=== PATIENT | male | born 1975 | race Caucasian/White ===

== ENCOUNTER 2023-08-26 01:16 | Day surgery (SDC) | payer BC, SELFPAY ==
[2023-08-16 08:39] VITALS: BMI 30.7
--- NOTE | 2023-08-24 11:59 | SUR.PREOP ---
Patient called regarding upcoming procedure. Message left on pt's vm regarding appointment times.
--- NOTE | 2023-08-26 13:18 | PM.HPGS ---
History of Present Illness History of Present Illness Consent: Risks, benefits, and alternatives have been discussed and questions answered. Patient agrees to proceed with procedure. Chief complaint: neoplasm screening Narrative: Sd Chino Jr. is a 48 year old male referred for colon cancer screening. Review of Systems Review of Systems: All systems reviewed & are unremarkable except as noted in HPI and below [facility] Social History Social History Smoking status: Never smoker Alcohol intake: current Drinks per week: 3 Substance use type: does not use Living arrangements: alone Meds Home Medications and Allergies Home Medications Medication Instructions Recorded Confirmed Type gabapentin 600 mg tablet 600 mg PO HS 08/16/23 08/26/23 History glimepiride 4 mg tablet 4 mg PO BID 08/16/23 08/26/23 History hydroxyzine pamoate 50 mg capsule 50 mg PO HS 08/16/23 08/26/23 History metformin 1,000 mg tablet 1,000 mg PO BID 08/16/23 08/26/23 History Allergies Allergy/AdvReac Type Severity Reaction Status Date / Time No Known Allergies Allergy Verified 08/26/23 12:59 Exam Const: General: alert Orientation/consciousness: patient oriented x3 Resp: Auscultation: clear to auscultation bilaterally Cardio: Rhythm: regular rhythm GI: GI Palp: Yes Soft to palpation and No Tenderness to palpation present (GI) Neuro: General: patient oriented x3 Assessment and Plan Assessment and plan (1) Colon cancer screening: Code(s): Z12.11 - Encounter for screening for malignant neoplasm of colon Status: Acute Assessment and Plan: Colonoscopy with possible biopsy or polypectomy or cautery or injection of substances.
[2023-08-26] MEDS: LACTATED RINGERS 1,000 ML 150 ML IV CONT (13:24)
[2023-08-26 13:25] VITALS: BP 130/77; PULSE 98; RESP 20; TEMP 36.1; O2SAT 98
[2023-08-26 13:25] LABS: Glucose Point of Care 234 mg/dl (65-105)
--- NOTE | 2023-08-26 13:31 | P.PNAN_ITS ---
Anes - Initial Pre Proc Eval Procedure: Operation Date: 08/26/23 14:00 Proposed Procedures p Screening Colonoscopy - Michele Shirley MD Date/Time: 08/26/23 13:31 Surgeon: Michele Shirley MD Pre Op Diagnosis: neoplasm screening Patient Data Age: 48 Gender: M Height: 1.8 m Weight: 96.7 kg Last Vital Signs Temp 96.9 F L 08/26/23 13:25 Pulse 98 08/26/23 13:25 Resp 20 08/26/23 13:25 BP 130/77 08/26/23 13:25 Pulse Ox 98 08/26/23 13:25 O2 Del Method Room Air 08/26/23 13:25 Allergies Allergy/AdvReac Type Severity Reaction Status Date / Time No Known Allergies Allergy Verified 08/26/23 12:59 Home Medications Medication Instructions Recorded Confirmed Type gabapentin 600 mg tablet 600 mg PO HS 08/16/23 08/26/23 History glimepiride 4 mg tablet 4 mg PO BID 08/16/23 08/26/23 History hydroxyzine pamoate 50 mg capsule 50 mg PO HS 08/16/23 08/26/23 History metformin 1,000 mg tablet 1,000 mg PO BID 08/16/23 08/26/23 History Laboratory Tests 08/26/23 13:13 POC Capillary Glucose 234 H mg/dl (65-105) Patient hx anesthesia problems: none Family hx anesthesia problems: none Results Review: All pre-operative results and documents have been reviewed as part of the pre- operative evaluation. REPLACED BY [facility] Social History Social History Smoking status: Never smoker Alcohol intake: current Drinks per week: 3 Substance use type: does not use Living arrangements: alone Anes - Eval Final PreProcedure Day of Procedure 08/26/23 13:31 Patient weight: obese Heart: regular rate and rhythm Lungs: clear to auscultation Airway: Mallampati scale class II Neurological: alert and oriented Last oral intake: >/= 8 hours ASA classification: II Emergent: no Anesthetic plan: proceed Anesthesia type and monitoring: general GIVS and standard monitoring Results Review: All pre-operative results and documents have been reviewed as part of the pre- operative evaluation. Informed Consent: The patient's anesthetic plan and its attendant risks and benefits were discussed with the patient/family/POA. Questions were solicited and answers provided to the satisfaction of the patient/family/POA.
[2023-08-26 13:51] VITALS: BP 123/72; PULSE 84; RESP 16; O2SAT 99
[2023-08-26 14:01] VITALS: BP 122/77; PULSE 80; RESP 18; O2SAT 100
[2023-08-26 14:11] VITALS: BP 133/82; PULSE 82; RESP 18; O2SAT 100
== END 2023-08-26 14:25 | disposition home or self-care (01) ==
PROVIDERS: PCP Internal Medicine; Visit Provider Internal Medicine Gastroenterology
PROC: 0DJD8ZZ Inspection of Lower Intestinal Tract, Via Natural or Artificial Opening Endoscopic (ICD-10-PCS; CPT 45378; principal; 2023-08-26 14:00)
DX: Z12.11 Encounter for screening for malignant neoplasm of colon (principal); K63.5 Polyp of colon; K64.8 Other hemorrhoids; E66.9 Obesity, unspecified; Z68.29 Body mass index [BMI] 29.0-29.9, adult; Z79.84 Long term (current) use of oral hypoglycemic drugs
CPT/HCPCS: 45385; 82948; 88305; J2704; J7120